=== PATIENT | male | born 1990 | race African-American/Black ===

== ENCOUNTER 2022-02-15 18:55 | Emergency (ER) | payer MEDICAID ==
[~2022-02-15] VITALS: Ht 172.7 cm; Wt 122.0 kg
[2022-02-15] MEDS ORDERED: FLUORESCEIN SOD OPTH TEST STRIP RIGHTEYE ONE (20:30)
[2022-02-15] MEDS ORDERED: TETRACAINE HCL 0.5% OPTH(EYE) SOLN 4ML RIGHTEYE ONE (20:30)
[2022-02-15] MEDS ORDERED: CIPRSUS OT (21:04)
[2022-02-15 21:36] VITALS: BP 128/84
[2022-02-17] MEDS ORDERED: CIP03OS RIGHTEYE (18:46)
== END 2022-02-15 21:36 | disposition home or self-care (01) ==
LOC: ER 18:55
DX: S05.01XA Injury of conjunctiva and corneal abrasion without foreign body, right eye, initial encounter (principal); X58.XXXA Exposure to other specified factors, initial encounter; Y93.89 Activity, other specified; Y92.89 Other specified places as the place of occurrence of the external cause; Y99.8 Other external cause status